=== PATIENT | male | born 1945 | race Caucasian/White ===

== ENCOUNTER 2019-04-16 06:07 | Day surgery (SDC) | payer MEDICARE, BC ==
[2019-04-15 15:48] LABS: BASOPHILS % (AUTO) 0.5 % (0-1); EOSINOPHILS # (AUTO) 0.2 X10'3 (0-0.9); EOSINOPHILS % (AUTO) 3.9 % (0-6); HEMATOCRIT 37.9 % (42.0-52.0); HEMOGLOBIN 12.4 g/dl (14.0-17.9); LYMPHOCYTES # (AUTO) 0.9 X10'3 (1.1-4.8); MEAN CORPUSCULAR HEMOGLOBIN 29.4 PG (27.0-31.0); MEAN CORPUSCULAR HGB CONC 32.7 g/dL (33.0-36.5); MEAN CORPUSCULAR VOLUME 89.8 FL (78-98); MEAN PLATELET VOLUME 8.5 FL (7.4-10.4); MONOCYTES # (AUTO) 0.4 X10'3 (0-0.9); MONOCYTES % (AUTO) 8.5 % (2-12); NEUTROPHILS # (AUTO) 3.4 X10'3 (1.8-7.7); NEUTROPHILS % (AUTO) 69.1 % (42-75); PLATELET COUNT 151 X10'3 (140-440); RED BLOOD COUNT 4.22 X10'6 (4.70-6.10); RED CELL DISTRIBUTION WIDTH 15.3 % (11.5-14.5); WHITE BLOOD COUNT 4.9 X10'3 (4.5-11.0)
[2019-04-15 15:59] LABS: ALBUMIN 3.7 G/DL (3.4-5.0); ANION GAP 3 (8-16); BLOOD UREA NITROGEN 16 MG/DL (7-18); BUN/CREATININE RATIO 4.3 (5.4-32.0); CHLORIDE 103 MMOL/L (99-107); CREATININE 3.76 MG/DL (0.60-1.10); GLUCOSE 125 MG/DL (70-104); POTASSIUM 3.7 MMOL/L (3.5-5.1); SODIUM 140 MMOL/L (135-145); TOTAL CARBON DIOXIDE 33.9 MMOL/L (24-32); eGFR 16 ML/MIN
[2019-04-15 16:08] LABS: PARTIAL THROMBOPLASTIN TIME 27 SECONDS (22-32)
[~2019-04-16] VITALS: Ht 182.9 cm; Wt 98.8 kg
[2019-04-16] VITALS (12 sets, daily range): BP systolic 130–177; BP diastolic 63–79
[2019-04-16] MEDS ORDERED: acetylcysteine 200 MG/ml 4ml vial PO SCH (06:20)
[2019-04-16] MEDS ORDERED: diphenhydrAMINE 25mg capsule PO PRN (06:20)
[2019-04-16] MEDS ORDERED: sodium bicarbonate (8.4%) inj. 75 ML in dextrose 5% water 500ml 500 ML IV ONE (06:20)
[2019-04-16] MEDS ORDERED: ROSU10TA2 PO (06:33)
[2019-04-16] MEDS ORDERED: PANT-47 PO (06:33)
[2019-04-16] MEDS ORDERED: FURO80TA87 PO (06:33)
[2019-04-16] MEDS ORDERED: FOLI1TAB34 PO (06:33)
[2019-04-16] MEDS ORDERED: CARV25TA PO (06:33)
[2019-04-16] MEDS ORDERED: CALCIUM PO (06:33)
[2019-04-16] MEDS ORDERED: INSU100I8 SQ (06:33)
[2019-04-16] MEDS ORDERED: LANTUS SQ (06:33)
[2019-04-16] MEDS ORDERED: ASPI-611 PO (06:33)
[2019-04-16] MEDS ORDERED: LIDOcaine/PRILOcaine 5gm cream TP ONE (06:45)
[2019-04-16] MEDS ORDERED: iohexol 350 MG/ML 50ML vial IV ONE (07:22)
[2019-04-16] MEDS ORDERED: iohexol 350MG/ML 100ml bottle IV ONE (07:22)
[2019-04-16] MEDS ORDERED: heparin 1,000unit/ml 10ml vial 10 ML ONE (07:22)
[2019-04-16] MEDS ORDERED: LIDOcaine 1% 30ml preserv. free vial ONE (07:22)
[2019-04-16] MEDS ORDERED: nitroGLYCERIN-Tridil 50MG/D5W 250 ML IV ONE (07:22)
[2019-04-16] MEDS ORDERED: midazolam 2 mg/2 ml injection ONE (07:22)
[2019-04-16] MEDS ORDERED: fentaNYL/PF 50MCG/1 ML 2ML syringe ONE (07:22)
[2019-04-16] MEDS ORDERED: verapamil 2.5 mg/ml inj IV ONE (07:35)
[2019-04-16 15:55] LABS: ISTAT HGB ART 10.5 g/dl (14.0-18.0); ISTAT Hct ART 31 %PCV (42-52); ISTAT O2 SATURATION ARTERIAL 92 % (95-98); ISTAT SOURCE ART
[2019-04-16 15:55] LABS: ISTAT Hct MIX 31 %PCV (42-52); ISTAT O2 SATURATION MIX VENOUS 68 % (60-80); ISTAT SOURCE MIX
== END 2019-04-16 14:50 | disposition home or self-care (01) ==
LOC: SSTAY O 06:07
PROVIDERS: ATTEND Internal Medicine Cardiovascular Disease
DX: I25.10 Atherosclerotic heart disease of native coronary artery without angina pectoris (principal); E11.22 Type 2 diabetes mellitus with diabetic chronic kidney disease; I12.0 Hypertensive chronic kidney disease with stage 5 chronic kidney disease or end stage renal disease; N18.5 Chronic kidney disease, stage 5; E78.5 Hyperlipidemia, unspecified; I48.0 Paroxysmal atrial fibrillation; G47.33 Obstructive sleep apnea (adult) (pediatric); Z98.890 Other specified postprocedural states; Z79.899 Other long term (current) drug therapy; Z79.82 Long term (current) use of aspirin; Z79.4 Long term (current) use of insulin; Z98.49 Cataract extraction status, unspecified eye; Z96.659 Presence of unspecified artificial knee joint; Z95.1 Presence of aortocoronary bypass graft; Z83.3 Family history of diabetes mellitus; Z82.49 Family history of ischemic heart disease and other diseases of the circulatory system
CPT/HCPCS: 36415; 80048; 82803; 82948; 85014; 85025; 85610; 85730; 93005; 93460; 99152; 99153; C1769; C1894; J1644; J2001; J2250; J3010; Q0163; Q9967; A4620; J3490

== ENCOUNTER 2022-06-30 10:57 | Day surgery (SDC) | payer MEDICARE, BC ==
[2022-06-30] VITALS (7 sets, daily range): BP systolic 120–159; BP diastolic 70–95
[~2022-06-30] VITALS: Ht 185.4 cm; Wt 91.9 kg
[~2022-06-30 10:57] MED LIST: ASPI-611 PO; CALCIUM PO; CARV25TA PO; FOLI1TAB34 PO; FURO80TA87 PO; INSU100I8 SQ; LANTUS SQ; PANT-47 PO; ROSU10TA2 PO
[2022-06-30] MEDS ORDERED: normal saline 1000ml 1,000 ML IV PRN (11:20)
[2022-06-30] MEDS ORDERED: normal saline 1000ml 1,000 ML IV SCH (11:50)
[2022-06-30] MEDS ORDERED: PRED5TAB49 PO (11:59)
[2022-06-30] MEDS ORDERED: TACR0.5C20 PO (11:59)
[2022-06-30] MEDS ORDERED: APIX5TAB3 PO (11:59)
[2022-06-30] MEDS ORDERED: PREN1TAB79 PO (11:59)
[2022-06-30] MEDS ORDERED: LISI10TA27 PO (11:59)
[2022-06-30] MEDS ORDERED: INSU100I71 PO (11:59)
[2022-06-30] MEDS ORDERED: MULT-1085 PO (11:59)
[2022-06-30] MEDS ORDERED: CALC0.2536 PO (11:59)
[2022-06-30] MEDS ORDERED: heparin sodium, porcine/PF 100unit/ml 5ML syringe ONE (12:15)
[2022-06-30] MEDS ORDERED: midazolam 1 mg/ML 2ml injection ONE ×2 (12:15→12:53)
[2022-06-30] MEDS ORDERED: LIDOcaine 1% 30ml preserv. free vial ONE (12:15)
[2022-06-30] MEDS ORDERED: fentaNYL/PF 50MCG/1 ML 2ML syringe ONE ×2 (12:15→12:53)
== END 2022-06-30 14:45 | disposition home or self-care (01) ==
LOC: SSTAY O 10:57
PROVIDERS: ATTEND Radiology Diagnostic Radiology
DX: C25.9 Malignant neoplasm of pancreas, unspecified (principal); Z79.899 Other long term (current) drug therapy; Z98.890 Other specified postprocedural states; E11.22 Type 2 diabetes mellitus with diabetic chronic kidney disease; N18.9 Chronic kidney disease, unspecified; I48.91 Unspecified atrial fibrillation; Z79.82 Long term (current) use of aspirin; Z79.4 Long term (current) use of insulin
CPT/HCPCS: 36561; 76937; 77001; 82948; 99152; 99153; C1769; C1788; C1894; J1642; J2250; J3010; J3490; J7030; A4620